=== PATIENT | male | born 1960 | race Caucasian/White ===

== ENCOUNTER 2022-07-01 08:34 | Inpatient (IN) | payer SELFPAY ==
[~2022-07-01] VITALS: Ht 190.5 cm; Wt 88.5 kg
[2022-07-01 09:04] LABS: BASOPHILS % 0.2 % (0.0-1.0); EOSINOPHILS # (AUTO) 0.2 (0.0-0.4); EOSINOPHILS % 4.2 % (0.0-6.0); HEMATOCRIT 34.6 % (38.2-49.6); HEMOGLOBIN 11.1 g/dL (14.0-18.0); LYMPHOCYTES # (AUTO) 1.2 (1.0-3.2); LYMPHOCYTES % 28.6 % (18.0-39.1); MEAN CORPUSCULAR HEMOGLOBIN 29.5 pg (28-32); MEAN CORPUSCULAR HGB CONC 32.1 g/dL (31-35); MONOCYTES # (AUTO) 0.3 (0.2-0.8); MONOCYTES % 7.6 % (4.4-11.3); NEUTROPHILS # (AUTO) 2.4 (2.1-6.9); NEUTROPHILS % 59.2 % (38.7-80.0); PLATELET COUNT 129 x10e3/uL (140-360); RED BLOOD COUNT 3.76 x10e6/uL (4.3-5.7); RED CELL DISTRIBUTION WIDTH 13.8 % (11.7-14.4)
[2022-07-01 09:23] LABS: INR 0.96; PROTHROMBIN TIME 13.3 seconds (11.9-14.5)
[2022-07-01 09:24] LABS: PARTIAL THROMBOPLASTIN TIME 28.9 seconds (23.8-35.5)
[2022-07-01 09:33] LABS: ALBUMIN 3.4 g/dL (3.5-5.0); ALBUMIN/GLOBULIN RATIO 1.4 (0.8-2.0); ANION GAP 8.4 mmol/L (8-16); CALCIUM 8.8 mg/dL (8.4-10.2); CREATININE, SERUM 0.84 mg/dL (0.72-1.25); POTASSIUM 3.4 mmol/L (3.5-5.1)
[2022-07-01] MEDS ORDERED: ONDANSETRON HCL INJ 2MG/ML 2ML 2 MG/ML VIAL IV PRN (10:30)
[2022-07-01] MEDS ORDERED: Morphine 2mg Syringe 2 MG/ML SYR IV PRN (10:30)
[2022-07-01] MEDS ORDERED: NITROGLYCERIN 0.4 MG SUBL SL PRN (10:30)
[2022-07-01] MEDS: FAMOTIDINE 20 MG/2 ML VIAL IV SCH ×2 (10:30→21:45)
[2022-07-01] MEDS: ASPIRIN 81 MG ENTERIC COATED PO SCH (10:40)
[2022-07-01 13:30] VITALS: BP 130/70; O2SAT 98
[2022-07-01] MEDS ORDERED: LOSARTAN POTASS25 MG PO (15:03)
[2022-07-01] MEDS ORDERED: CRESTOR10 MG PO (15:03)
[2022-07-01 16:10] VITALS: BP 130/73; PULSE 61; RESP 16; TEMP 97.8; O2SAT 100
[2022-07-01 16:39] VITALS: BP 130/73; PULSE 61; RESP 16; TEMP 97.8; O2SAT 100
[2022-07-01 18:01] LABS: CREATINE KINASE MB 3.1 ng/mL (0-5.0)
[2022-07-01 18:38] LABS: FREE THYROXINE INDEX 2.2877 (1.4-3.8); THYROID STIMULATING HORMONE 2.82 uIU/mL (0.350-4.940)
[2022-07-01 21:00] VITALS: BP 116/61; PULSE 80; RESP 20; TEMP 102.5; O2SAT 100
[2022-07-01 21:28] LABS: CLARITY,URINE SL CLOUDY (CLEAR); COLOR,URINE YELLOW (YELLOW); KETONES,URINE TRACE (NEGATIVE); LEUKOCYTE ESTERASE ,URINE NEGATIVE (NEGATIVE); NITRITE,URINE NEGATIVE (NEGATIVE); PROTEIN,URINE DIPSTICK NEGATIVE (NEGATIVE); URINE UROBILINOGEN 1 mg/dL (0.2 - 1)
[2022-07-01] MEDS: ACETAMINOPHEN 325 MG TAB PO PRN (21:39)
[2022-07-01 21:40] LABS: WBC,URINE (MAN) 0-5 /HPF (0-5)
[2022-07-01 22:10] VITALS: BP 116/61; PULSE 80; RESP 20; TEMP 102.5; O2SAT 100
[2022-07-01 23:35] VITALS: TEMP 100.9
[2022-07-02] VITALS (9 sets, daily range): BP systolic 100–128; BP diastolic 52–71; PULSE 59–70; RESP 16–20; TEMP 98.6–100.2; O2SAT 98–100
[2022-07-02 01:20] LABS: CREATINE KINASE MB 1.2 ng/mL (0-5.0)
[2022-07-02 04:59] LABS: BASOPHILS % 0.2 % (0.0-1.0); EOSINOPHILS # (AUTO) 0.1 (0.0-0.4); EOSINOPHILS % 2.2 % (0.0-6.0); HEMATOCRIT 33.5 % (38.2-49.6); HEMOGLOBIN 10.4 g/dL (14.0-18.0); LYMPHOCYTES # (AUTO) 0.6 (1.0-3.2); LYMPHOCYTES % 14.6 % (18.0-39.1); MEAN CORPUSCULAR HEMOGLOBIN 29.2 pg (28-32); MEAN CORPUSCULAR VOLUME 94.1 fL (81-99); MONOCYTES # (AUTO) 0.2 (0.2-0.8); MONOCYTES % 5.6 % (4.4-11.3); NEUTROPHILS # (AUTO) 3.2 (2.1-6.9); NEUTROPHILS % 76.9 % (38.7-80.0); PLATELET COUNT 102 x10e3/uL (140-360); RED BLOOD COUNT 3.56 x10e6/uL (4.3-5.7)
[2022-07-02 05:26] LABS: ALBUMIN/GLOBULIN RATIO 1.4 (0.8-2.0); ANION GAP 8.7 mmol/L (8-16); CALCIUM 8.1 mg/dL (8.4-10.2); CHOL/HDL RATIO 2.2 (3.9-4.7); CREATININE, SERUM 0.9 mg/dL (0.72-1.25); POTASSIUM 3.7 mmol/L (3.5-5.1)
[2022-07-02 06:00] LABS: MAGNESIUM 1.7 MG/DL (1.3-2.1); PHOSPHORUS 3.5 MG/DL (2.3-4.7)
[2022-07-02 07:53] LABS: FERRITIN 389.52 ng/mL (21.81-274.66)
[2022-07-02] MEDS: LOSARTAN POTASSIUM 25 MG TAB PO SCH (08:20)
[2022-07-02] MEDS: ASPIRIN 81 MG ENTERIC COATED PO SCH (08:21)
[2022-07-02 08:38] LABS: EOSINOPHILS % (MANUAL) 2 % (0-7); LYMPHOCYTES % (MANUAL) 21 % (19-48); MONOCYTES % (MANUAL) 1 % (3.4-9.0); NEUTROPHILS % (MANUAL) 76 % (40-74); PLATELET ESTIMATE SLIGHTLY DECREASED; PLATELET MORPHOLOGY COMMENT NORMAL; RBC MORPHOLOGY COMMENT NORMAL
[2022-07-02] MEDS ORDERED: SIMVASTATIN 40 MG TAB PO SCH (09:00)
[2022-07-02] MEDS ORDERED: IOPAMIDOL 370 MG/ML 100 ML INFUS..BTL INJ ONE (09:01)
[2022-07-02] MEDS: FAMOTIDINE 20 MG/2 ML VIAL IV SCH ×2 (12:20→21:38)
[2022-07-02] MEDS: CRESTOR 10MG PO SCH (21:38)
[2022-07-02] MEDS: ACETAMINOPHEN 325 MG TAB PO PRN (21:45)
[2022-07-03 00:15] VITALS: BP 117/58; PULSE 54; RESP 16; TEMP 98.5; O2SAT 100
[2022-07-03 05:04] VITALS: BP 113/55; PULSE 51; RESP 16; TEMP 97.9; O2SAT 99
[2022-07-03 06:25] LABS: ALBUMIN 3.1 g/dL (3.5-5.0); ALBUMIN/GLOBULIN RATIO 1.4 (0.8-2.0); ANION GAP 8.6 mmol/L (8-16); CALCIUM 7.9 mg/dL (8.4-10.2); CREATININE, SERUM 0.79 mg/dL (0.72-1.25); POTASSIUM 3.6 mmol/L (3.5-5.1)
[2022-07-03 07:01] LABS: BASOPHILS % 0.4 % (0.0-1.0); EOSINOPHILS # (AUTO) 0.2 (0.0-0.4); EOSINOPHILS % 6.7 % (0.0-6.0); HEMATOCRIT 32.9 % (38.2-49.6); HEMOGLOBIN 10.3 g/dL (14.0-18.0); LYMPHOCYTES % 37.4 % (18.0-39.1); MEAN CORPUSCULAR HEMOGLOBIN 29.4 pg (28-32); MEAN CORPUSCULAR HGB CONC 31.3 g/dL (31-35); MONOCYTES # (AUTO) 0.3 (0.2-0.8); MONOCYTES % 10.7 % (4.4-11.3); NEUTROPHILS # (AUTO) 1.2 (2.1-6.9); NEUTROPHILS % 44.4 % (38.7-80.0); RED CELL DISTRIBUTION WIDTH 13.9 % (11.7-14.4)
[2022-07-03 07:02] LABS: PLATELET COUNT 82 x10e3/uL (140-360)
[2022-07-03 10:10] VITALS: BP 113/55; PULSE 54; RESP 16; TEMP 97.9; O2SAT 99
[2022-07-03 12:50] VITALS: BP 131/76; PULSE 58; RESP 18; TEMP 97.7; O2SAT 98
[2022-07-03] MEDS ORDERED: ONDANSETRON HCL 4 MG ORAL DISINTEGRATING TAB PO PRN (13:45)
[2022-07-03] MEDS: ASPIRIN 81 MG ENTERIC COATED PO SCH (16:07)
[2022-07-03] MEDS: LOSARTAN POTASSIUM 25 MG TAB PO SCH (16:08)
[2022-07-03] MEDS: FAMOTIDINE 20 MG/2 ML VIAL IV SCH ×2 (16:08→22:56)
[2022-07-03 20:00] VITALS: BP 128/72; PULSE 58; RESP 18; TEMP 97.7; O2SAT 98
[2022-07-03] MEDS: CRESTOR 10MG PO SCH (21:06)
[2022-07-03 22:20] VITALS: BP 132/77; PULSE 56; RESP 21; TEMP 98; O2SAT 99
[2022-07-04] VITALS (16 sets, daily range): BP systolic 107–127; BP diastolic 57–73; PULSE 47–66; RESP 10–20; TEMP 98.1–98.8; O2SAT 96–100
[2022-07-04 05:56] LABS: BASOPHILS % 0.3 % (0.0-1.0); EOSINOPHILS # (AUTO) 0.2 (0.0-0.4); EOSINOPHILS % 6.4 % (0.0-6.0); HEMATOCRIT 33.5 % (38.2-49.6); HEMOGLOBIN 10.7 g/dL (14.0-18.0); LYMPHOCYTES # (AUTO) 1.4 (1.0-3.2); LYMPHOCYTES % 42.6 % (18.0-39.1); MEAN CORPUSCULAR HEMOGLOBIN 29.6 pg (28-32); MEAN CORPUSCULAR HGB CONC 31.9 g/dL (31-35); MEAN CORPUSCULAR VOLUME 92.8 fL (81-99); MONOCYTES # (AUTO) 0.4 (0.2-0.8); MONOCYTES % 12.5 % (4.4-11.3); NEUTROPHILS # (AUTO) 1.3 (2.1-6.9); NEUTROPHILS % 37.9 % (38.7-80.0); PLATELET COUNT 84 x10e3/uL (140-360); RED BLOOD COUNT 3.61 x10e6/uL (4.3-5.7); RED CELL DISTRIBUTION WIDTH 13.9 % (11.7-14.4)
[2022-07-04 06:35] LABS: ALBUMIN 3.1 g/dL (3.5-5.0); ALBUMIN/GLOBULIN RATIO 1.3 (0.8-2.0); ANION GAP 8.7 mmol/L (8-16); CALCIUM 8.2 mg/dL (8.4-10.2); CREATININE, SERUM 0.75 mg/dL (0.72-1.25); POTASSIUM 3.7 mmol/L (3.5-5.1)
[2022-07-04] MEDS ORDERED: HEPARIN SOD (PORCINE) 1000 UNIT/ML 30ML ONE (06:37)
[2022-07-04] MEDS ORDERED: LIDOCAINE HCL 2% LOCAL 20 ML VIAL ONE (06:37)
[2022-07-04] MEDS ORDERED: HEPARIN SOD/SOD CHLORIDE 2,000 ML ONE (06:38)
[2022-07-04] MEDS ORDERED: IOPAMIDOL 370 MG/ML 100 ML INFUS..BTL INJ ONE (06:38)
[2022-07-04] MEDS ORDERED: SODIUM CHLORIDE 0.9% 1000ML 1,000 ML ONE (06:38)
[2022-07-04] MEDS ORDERED: NITROGLYCERIN/D5W 200 MCG/ML 250 ML ONE (06:38)
[2022-07-04] MEDS ORDERED: MIDAZOLAM HCL 2 MG/2 ML VIAL ONE (06:39)
[2022-07-04] MEDS ORDERED: VERAPAMIL HCL 2.5 MG/ML 2 ML VIAL ONE (06:39)
[2022-07-04] MEDS ORDERED: FENTANYL CITRATE/PF 100MCG/2 ML INJ ONE (06:39)
[2022-07-04] MEDS ORDERED: SODIUM CHLORIDE 0.9% 1000ML 1,000 ML IV SCH (09:00)
[2022-07-04] MEDS ORDERED: LOSARTAN POTASSIUM 25 MG TAB PO SCH (09:00)
[2022-07-04] MEDS: CARVEDILOL 12.5 MG TAB PO SCH ×2 (09:58→17:13)
[2022-07-04] MEDS ORDERED: ASPIRIN 81 MG CHEW TAB ONE (09:59)
[2022-07-04] MEDS: ASPIRIN 81 MG ENTERIC COATED PO SCH (09:59)
[2022-07-04] MEDS: FAMOTIDINE 20 MG/2 ML VIAL IV SCH (11:24)
[2022-07-04] MEDS ORDERED: ASPIRIN81 MG PO (16:45)
[2022-07-04] MEDS ORDERED: PLAVIX75 MG PO (16:54)
[2022-07-04] MEDS ORDERED: LOSARTAN POTASS25 MG PO (16:55)
[2022-07-04] MEDS ORDERED: CRESTOR10 MG PO (16:56)
[2022-07-04] MEDS ORDERED: COREG6.25 MG PO (16:56)
[2022-07-04] MEDS ORDERED: CRESTOR 10MG PO SCH (21:00)
[2022-07-04] MEDS ORDERED: FAMOTIDINE 20 MG TAB PO SCH (21:00)
[2022-07-05] VITALS: BP 121/62; PULSE 51; RESP 18; TEMP 98.1; O2SAT 99
[2022-07-05 04:00] VITALS: BP 108/65; PULSE 55; RESP 18; TEMP 98; O2SAT 100
[2022-07-05] MEDS ORDERED: CLOPIDOGREL BISULFATE 75 MG TAB PO SCH (09:00)
== END 2022-07-05 07:59 | disposition home or self-care (01) | DRG 287 ==
LOC: ER 08:40 → ERHOLD 10:26 → MED/SURG2 15:05 → OBSVTOIN 07-02 09:51
PROVIDERS: ADMIT Family Medicine Adult Medicine; ATTEND Family Medicine Adult Medicine
PROC: 4A023N7 Measurement of Cardiac Sampling and Pressure, Left Heart, Percutaneous Approach (ICD-10-PCS; principal; 2022-07-01)
PROC: B2111ZZ Fluoroscopy of Multiple Coronary Arteries using Low Osmolar Contrast (ICD-10-PCS; 2022-07-01)
DX: I25.10 Atherosclerotic heart disease of native coronary artery without angina pectoris (principal); D61.818 Other pancytopenia; I10 Essential (primary) hypertension; E78.5 Hyperlipidemia, unspecified; R00.1 Bradycardia, unspecified; D69.6 Thrombocytopenia, unspecified; M25.572 Pain in left ankle and joints of left foot; D63.8 Anemia in other chronic diseases classified elsewhere; Z79.82 Long term (current) use of aspirin
CPT/HCPCS: 36415; 70450; 71045; 71260; 74177; 76937; 78452; 80053; 80061; 81001; 82550; 82553; 82728; 83540; 83735; 83880; 84100; 84436; 84443; 84466; 84479; 84484; 85025; 85610; 85730; 93005; 93017; 93306; 93458; 99152; 99153; 99284; A9502; G0378; J1644; J2001; J2250; J2405; J7030; Q9967